=== PATIENT | male | born 1990 | race American Indian/Alaskan Native ===

== ENCOUNTER 2017-05-04 22:09 | Emergency (ER) | payer SELFPAY ==
[2017-05-04 22:24] VITALS: BP 132/93
[2017-05-04] MEDS ORDERED: TYLENOL PO ONE (22:25)
[2017-05-04] MEDS ORDERED: TYLENOL ONE (22:26)
--- NOTE | 2017-05-04 23:34 | XRay Report ---
FINAL REPORT PROCEDURE: XR WRIST 3+V LT TECHNIQUE: LEFT wrist radiographs, including AP, lateral, and oblique views. CPT 22530 HISTORY: s/p fall lt wrist pain COMPARISON: No prior studies are available for comparison. FINDINGS: Fracture (s) and/or Dislocation(s): None . Alignment: Normal . Joint space(s): Normal . Soft tissues: Normal . Bone mineralization: Normal . Foreign bodies: None . IMPRESSION: Normal Examination.
== END 2017-05-05 08:14 | disposition left against medical advice (07) ==
LOC: ED 22:09
DX: Z53.21 Procedure and treatment not carried out due to patient leaving prior to being seen by health care provider (principal)